=== PATIENT | male | born 2000 | race Caucasian/White ===

== ENCOUNTER 2018-07-24 17:52 | Emergency (ER) | payer MEDICAID ==
[2018-07-24 17:58] VITALS: RESP 18
--- NOTE | 2018-07-24 18:52 | C.PDOC ---
History Of Present Illness 18 year old male presents to the ED with right ankle pain s/p landing on his ankle playing basketball. Patient stated that he jumped and landed on the ground, and his ankle rolled outward. Patient denies all other physical complaints or any other injuries. Denies numbness, tingling, dizziness, headache, LOC, nausea, or vomiting. Time Seen by Provider: 07/24/18 18:10 Chief Complaint (Nursing): Lower Extremity Problem/Injury History Per: Patient History/Exam Limitations: no limitations Onset/Duration Of Symptoms: Hrs Current Symptoms Are (Timing): Still Present Severity: Moderate Pain Scale Rating Of: 6 - Ankle/Foot Description Of Injury: Other (came down from a jump and landed on ankle) Past Medical History Reviewed: Historical Data, Nursing Documentation, Vital Signs Vital Signs: Last Vital Signs Temp 98.6 F 07/24/18 17:54 Pulse 88 07/24/18 17:54 Resp 18 07/24/18 17:54 BP 132/77 07/24/18 17:54 Pulse Ox 97 07/24/18 17:54 Primary Care Provider: Clinic,Med Surg Family History: States: No Known Family Hx - Social History Hx Tobacco Use: No Hx Alcohol Use: No Hx Substance Use: No - Immunization History Hx Tetanus Toxoid Vaccination: Yes Hx Influenza Vaccination: No Hx Pneumococcal Vaccination: No Review Of Systems Constitutional: Negative for: Fever, Chills, Sweats Respiratory: Negative for: Cough, Shortness of Breath Gastrointestinal: Negative for: Nausea, Vomiting, Abdominal Pain Musculoskeletal: Positive for: Other (pain in the ankle). Negative for: Neck Pain, Back Pain, Leg Pain Skin: Negative for: Rash, Bruising Neurological: Negative for: Weakness, Numbness Physical Exam - Physical Exam Appears: Well, Non-toxic, No Acute Distress Skin: Normal Color, Warm, Dry Head: Atraumatic, Normacephalic Eye(s): bilateral: Normal Inspection Nose: No Discharge Oral Mucosa: Moist Neck: Normal ROM, Supple Chest: Symmetrical Cardiovascular: Rhythm Regular Respiratory: Normal Breath Sounds, No Wheezing Gastrointestinal/Abdominal: Soft, No Tenderness Extremity: Normal ROM (at the right ankle), No Tenderness (to the right ankle), No Calf Tenderness, Capillary Refill <2 Sec, Swelling (mild edema to lateral aspect of right ankle ) Pulses: Left Dorsalis Pedis: Normal, Right Dorsalis Pedis: Normal Neurological/Psych: Oriented x3, Normal Speech, Normal Cognition, Normal Sensation Gait: Other (limp) ED Course And Treatment O2 Sat by Pulse Oximetry: 97 (RA) Medical Decision Making Medical Decision Making: Plan: X-Ray of right ankle 19:18 Carpet Inspector reviewed X-Ray images, read as unremarkable, advised non weight- bearing. Patient given an Joao bandage and surgical shoe along with pain medication. Crutches given. Patient stable for discharge. Disposition Counseled Patient/Family Regarding: Studies Performed, Diagnosis, Need For Followup, Rx Given - Disposition Referrals: Podiatry Clinic [Outside] Disposition: HOME/ ROUTINE Disposition Time: 19:50 Condition: IMPROVED Additional Instructions: Continue Naproxen Rest, Ice, Compression, and Elevation non-weight bearing Follow up with Podiatry if symptoms worsen- may need MRI Return to ED if symptoms worsen Prescriptions: Naproxen [Naprosyn] 500 mg PO BID #30 tablet Instructions: Ankle Sprain (DC) Forms: [employer] (Swedish), School Excuse - Clinical Impression Clinical Impression: Right ankle pain, Ankle sprain - PA / [employer] / Resident Statement MD/DO has reviewed & agrees with the documentation as recorded. - Scribe Statement The provider has reviewed the documentation as recorded by the Scribe (Tahira Talley) All medical record entries made by the Scribe were at my direction and personally dictated by me. I have reviewed the chart and agree that the record accurately reflects my personal performance of the history, physical exam, medical decision making, and the department course for this patient. I have also personally directed, reviewed, and agree with the discharge instructions and disposition.
[2018-07-24 20:25] VITALS: BP 115/76; PULSE 75; TEMP 98.1
[2018-07-24 20:26] VITALS: O2SAT 97
--- NOTE | 2018-07-25 12:30 | RAD ---
Right ankle three views HISTORY: Pain. COMPARISON: None available. FINDINGS: No evidence of acute displaced fracture dislocation. Ankle mortise is maintained. Talar dome is intact. IMPRESSION: Negative acute. If pain persists, consider MRI.
== END 2018-07-24 20:25 | disposition home or self-care (01) ==
LOC: C.ER 17:52
DX: S93.401A Sprain of unspecified ligament of right ankle, initial encounter (principal); X58.XXXA Exposure to other specified factors, initial encounter; Y93.67 Activity, basketball; M25.571 Pain in right ankle and joints of right foot